=== PATIENT | female | born 1965 | race Caucasian/White ===

== ENCOUNTER 2018-04-14 00:25 | Inpatient (IN) | payer BC ==
[~2018-04-14] VITALS: Ht 172.7 cm; Wt 93.9 kg
[2018-04-14 00:26] VITALS: BP 175/95
[2018-04-14 01:03] LABS: HEMATOCRIT 43.5 % (37.0-47.0); HEMOGLOBIN 14.9 gm/dL (12.0-15.0); MCH 31.2 pg (26.0-34.0); MCHC 34.2 g/dL (28.0-37.0); MCV 91.2 fL (80.0-100.0); RBC 4.77 mil/uL (4.20-5.00); WBC 7.9 thou/uL (4.0-11.0)
[2018-04-14 01:10] LABS: ANION GAP 13 mmol/L (7-16); BUN 16 mg/dL (7-18); CALCIUM 9.5 mg/dL (8.5-10.1); CHLORIDE 98 mmol/L (98-107); CO2 24 mmol/L (21-32); CREATININE 0.9 mg/dL (0.6-1.0); GLUCOSE 137 mg/dL (74-106); POTASSIUM 3.5 mmol/L (3.5-5.1); SODIUM 135 mmol/L (136-145)
[2018-04-14 01:19] LABS: ALBUMIN 4.3 g/dL (3.4-5.0); LIPASE 173 U/L (73-393); SGOT 21 U/L (15-37); SGPT 28 U/L (30-65); TOTAL BILIRUBIN 0.3 mg/dL (<0.1-1.0); TOTAL PROTEIN 8.3 g/dL (6.4-8.2); TROPONIN-I <0.06 ng/mL (<0.06)
--- NOTE | 2018-04-14 02:06 | EKG ---
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
[2018-04-14 02:43] LABS: URINE BILIRUBIN NEGATIVE (Negative); URINE BLOOD NEGATIVE (Negative); URINE CLARITY CLEAR; URINE COLOR YELLOW; URINE GLUCOSE-RANDOM* NEGATIVE (Negative); URINE KETONES 1+ (Negative); URINE NITRITE-REFLEX NEGATIVE (Negative); URINE PROTEIN (DIPSTICK) NEGATIVE (Negative)
[2018-04-14 02:44] LABS: URINE LEUKOCYTES-REFLEX NEGATIVE (Negative); URINE UROBILINOGEN 0.2 E.U./dl (0.2-1.0)
[2018-04-14 04:08] VITALS: BP 139/84
[2018-04-14 04:36] VITALS: BP 141/80
[2018-04-14 08:00] VITALS: BP 145/81
[2018-04-14 15:00] VITALS: BP 141/79
--- NOTE | 2018-04-14 18:23 | NUR ---
ASSUMED CARE OF PT @ 0700. A&O X4. PT. ABLE TO MAKE NEEDS KNOWN. SON AT BEDSIDE VISITING. UP AD ARPITA NEEDED. IV INFUSING W/O DIFFICULTY. REVIEWED SURGICAL CONSENT W/PT & REVIEWED NPO AFTER MIDNIGHT. PRN MEDS GIVEN NEEDED FOR PAIN. CONTINUING TO MONITOR THROUGHOUT THE SHIFT (0). CALL LIGHTIN AC.
[2018-04-14 19:14] VITALS: BP 140/81
[2018-04-15] VITALS (7 sets, daily range): BP systolic 120–141; BP diastolic 74–79
[2018-04-15] MEDS ORDERED: ZOFRAN4 MG PO (08:44)
[2018-04-15] MEDS ORDERED: NORCO 5-325 TA1 EACH PO (08:44)
--- NOTE | 2018-04-17 13:08 | PATH ---
[facility] [address] [place] [address] PATHOLOGY RPT PROCEDURE Name: JANET DA SILVA Room #: 457-P [facility] IN M.R.#: [id number] Admission: 04/14/18 Date of : 61 Discharge: 04/15/18 Report #: [id number] Path Case #: [id number] [facility] Accession Number: [id number] . 01 Material submitted: . GALLBLADDER . 01 Clinical history: . Acute cholecystitis . 02 Diagnosis: Gallbladder, cholecystectomy: - Mild chronic cholecystitis. - Cholelithiasis. - Reactive incidental lymph node. (IUV:jacqueline; 04/16/2018) QMS/04/16/2018 . 02 Electronically signed: . Kyra Banks MD, Pathologist NPI- [id number] . 01 Gross description: . The specimen is received in formalin, labeled "Janet Da Silva, gallbladder", is a previously opened gallbladder measuring 9.0 x 6.0 cm with an average 0.2 cm wall. The serosa is sauer-yellow and focally hemorrhagic. Within the cystic duct region there is a sauer-pink, rubbery lymph node measuring 0.8 x 0.7 x 0.6 cm. The mucosa is sauer-brown, partially granular with few irregular, black-green calculi. Within the container are multiple similar calculi. The aggregate measures 4.7 x 3.4 x 1.2 cm in aggregate. No discrete masses are identified. Licensed Guide tissue is submitted in A1. (SWS; 04/15/2018) SHS/SHS . 02 Pathologist provided ICD-10: K80.10 . 02 CPT . 214299 Specimen Comment: A courtesy copy of this report has been sent to Specimen Comment: [phone], , . Specimen Comment: Report sent to , and Specimen Comment: A duplicate report has been generated due to demographic updates. Performed at: [address] [place] [address] PATHOLOGY RPT PROCEDURE Name: JANET DA SILVA Room #: 457-P [facility] IN M.R.#: [id number] Admission: 04/14/18 Date of : 61 Discharge: 04/15/18 Report #: [id number] Path Case #: [id number] [address] [facility] [address], [place], [place] [id number] MD Codey Nicholson MD Phone: [phone] Performed at: [address] [id number] MD Kyra Banks MD Phone: [phone]
== END 2018-04-15 17:56 | disposition home or self-care (01) | DRG 418 ==
LOC: ER 00:25 → 4W 03:40 → EROBS 03:40 → 4W 04:28 → ENTRNSPT 04-15 17:04 → 4W 04-15 17:56
PROVIDERS: Student in an Organized Health Care Education/Training Program; ADMIT Internal Medicine
PROC: 0FT44ZZ Resection of Gallbladder, Percutaneous Endoscopic Approach (ICD-10-PCS; principal; 2018-04-15)
DX: K80.12 Calculus of gallbladder with acute and chronic cholecystitis without obstruction (principal); K56.1 Intussusception; I10 Essential (primary) hypertension; Z87.440 Personal history of urinary (tract) infections
CPT/HCPCS: 10047; 50010; 50101; 50249; 50411; 50555; 50558; 50962; 51489; 51975; 52265; 52266; 53307; 53310; 54022; 54118; 55245; 55317; 56462; 56525; 56526; 62110; 62900; 70005